=== PATIENT | female | born 1970 ===

== ENCOUNTER 2022-07-19 04:27 | Day surgery (SDC) | payer BC ==
[2022-07-12 16:22] VITALS: BMI 23.9
[2022-07-19] MEDS ORDERED: PHENAZOPYRIDINE HCL 100 MG TABLET (FP) ONE (06:38)
[2022-07-19] MEDS ORDERED: GABAPENTIN 300 MG CAPSULE ONE (06:38)
[2022-07-19] MEDS ORDERED: ceFAZolin SODIUM 1 GM VIAL ONE (06:38)
[2022-07-19] MEDS ORDERED: PHENAZOPYRIDINE HCL 100 MG TABLET (FP) PO ONE ×2 (06:50→07:30)
[2022-07-19] MEDS ORDERED: GABAPENTIN 300 MG CAPSULE PO ONE ×2 (06:50→07:30)
[2022-07-19] MEDS ORDERED: DEXAMETHASONE SOD PHOSPHATE 4 MG/1 ML VIAL ONE (07:22)
[2022-07-19] MEDS ORDERED: LIDOCAINE HCL/PF 2% SDV 5ML VIAL ONE (07:22)
[2022-07-19] MEDS ORDERED: BUPIVACAINE LIPOSOME/PF (EXPAREL) 266 MG/20 ML VIAL ONE (07:23)
[2022-07-19] MEDS ORDERED: PROPOFOL 20 ML ONE (07:23)
[2022-07-19] MEDS ORDERED: MIDAZOLAM HCL 2 MG/2 ML SINGLE DOSE VIAL ONE ×2 (07:23→07:24)
[2022-07-19] MEDS ORDERED: ROCURONIUM BROMIDE 50 MG/5 ML SYRINGE ONE (07:23)
[2022-07-19] MEDS ORDERED: SUCCINYLCHOLINE CHLORIDE 200 MG/10 ML SYRINGE ONE (07:23)
[2022-07-19] MEDS ORDERED: BUPIVACAINE HCL/PF 0.5% (5MG/ML) 10 ML VIAL ONE (07:24)
[2022-07-19] MEDS ORDERED: CEFAZOLIN SODIUM 2 GM in DEXTROSE 5%-WATER 100 ML IVPB ONE (08:00)
[2022-07-19] MEDS ORDERED: ceFAZolin SODIUM 1 GM VIAL IVPB ONE (08:00)
[2022-07-19] MEDS ORDERED: oxyCODONE HCL 5 MG TABLET PO PRN ×2 (09:08)
[2022-07-19] MEDS ORDERED: ONDANSETRON 4 MG/2 ML VIAL IVPUSH PRN ×2 (09:08→11:04)
[2022-07-19] MEDS ORDERED: KETOROLAC TROMETHAMINE 30 MG/1 ML VIAL IVPUSH SCH (09:15)
[2022-07-19] MEDS ORDERED: LACTATED RINGERS SOLUTION 1,000 ML IV SCH (09:15)
[2022-07-19] MEDS ORDERED: KETOROLAC TROMETHAMINE 30 MG/1 ML VIAL ONE (09:59)
[2022-07-19] MEDS ORDERED: ACETAMINOPHEN INJECTION 100 ML IVPB ONE (09:59)
[2022-07-19] MEDS ORDERED: NEOSTIGMINE METHYLSULFATE 0.5 MG/ML - 10 ML MDV ONE (10:02)
[2022-07-19] MEDS ORDERED: GLYCOPYRROLATE 0.2 MG/1 ML VIAL ONE (10:02)
[2022-07-19] MEDS ORDERED: DOCUSATE SODIUM 100 MG CAPSULE (FP) PO PRN (11:04)
[2022-07-19] MEDS ORDERED: BISACODYL 5 MG TABLET.DR (FP) PO PRN (11:04)
[2022-07-19] MEDS ORDERED: ACETAMINOPHEN 325 MG TABLET (FP) PO PRN (11:04)
[2022-07-19] MEDS ORDERED: LORATADINE 10 MG TABLET PO PRN (11:15)
[2022-07-19] MEDS ORDERED: [UNRECOGNIZED DRUG - REMARK] PO SCH (11:15)
[2022-07-19] MEDS: ACETAMINOPHEN 1000 MG/100 ML BAG IVPB SCH ×2 (15:15→21:29)
[2022-07-19] MEDS: CEFAZOLIN 1 GM in DEXTROSE 5%-WATER - 50 ML IVPB SCH (17:36)
[2022-07-19] MEDS: oxyCODONE HCL 10 MG SUSTAINED ACTING TABLET PO SCH (21:48)
[2022-07-19 21:49] LABS: HEMATOCRIT 32.8 % (32.4-45.2); HEMOGLOBIN 10.8 GM/dL (10.7-15.3); MCH 27.4 pg (25.7-33.7); MEAN CELL VOLUME 83.2 fl (80-96); MEAN PLT VOLUME 9.6 fl (7.5-11.1); PLATELET COUNT 157 10^3/uL (134-434); RBC 3.95 M/mm3 (3.60-5.2); RDW 15.3 % (11.6-15.6)
[2022-07-19 22:11] LABS: BLOOD UREA NITROGEN 8.2 mg/dL (7-18); CALCIUM 8.3 mg/dL (8.5-10.1)
[2022-07-20] MEDS: SIMETHICONE 80 MG TAB.CHEW (FP) PO PRN ×2 (00:38→04:33)
[2022-07-20] MEDS: CEFAZOLIN 1 GM in DEXTROSE 5%-WATER - 50 ML IVPB SCH ×2 (02:00→10:15)
[2022-07-20] MEDS: ACETAMINOPHEN 1000 MG/100 ML BAG IVPB SCH ×2 (04:00→04:20)
[2022-07-20 04:38] VITALS: BP 108/68
[2022-07-20 08:06] LABS: HEMATOCRIT 31.4 % (32.4-45.2); HEMOGLOBIN 10.2 GM/dL (10.7-15.3); MCH 26.5 pg (25.7-33.7); MCHC 32.4 g/dl (32.0-36.0); MEAN CELL VOLUME 81.9 fl (80-96); MEAN PLT VOLUME 9.4 fl (7.5-11.1); PLATELET COUNT 159 10^3/uL (134-434); RBC 3.84 M/mm3 (3.60-5.2); RDW 14.8 % (11.6-15.6); WHITE BLOOD COUNT 6.4 K/mm3 (4.0-10.0)
[2022-07-20 08:30] LABS: CALCIUM 8.3 mg/dL (8.5-10.1)
[2022-07-20 08:34] LABS: CREATININE 0.9 mg/dL (0.55-1.3)
[2022-07-20] MEDS ORDERED: ENOXAPARIN NA (PORCINE) 40 MG/0.4 ML DISP.SYRIN SQ SCH (10:00)
[2022-07-20] MEDS ORDERED: MULTIVITAMINS (DAILY MVI) TABLET (FP) PO SCH (10:00)
[2022-07-20] MEDS: oxyCODONE HCL 10 MG SUSTAINED ACTING TABLET PO SCH (11:12)
[2022-07-20 14:29] VITALS: PULSE 70; RESP 16; TEMP 97.7
== END 2022-07-20 19:00 | disposition home or self-care (01) ==
LOC: JASUSAT 04:27 → J3W 15:13 → JASUSAT 07-20 19:00
PROVIDERS: ATTEND Obstetrics & Gynecology
PROC: 8E0W8CZ Robotic Assisted Procedure of Trunk Region, Via Natural or Artificial Opening Endoscopic (ICD-10-PCS; 2022-07-19)
PROC: 0UB24ZZ Excision of Bilateral Ovaries, Percutaneous Endoscopic Approach (ICD-10-PCS; 2022-07-19)
PROC: 0UT9FZZ Resection of Uterus, Via Natural or Artificial Opening With Percutaneous Endoscopic Assistance (ICD-10-PCS; principal; 2022-07-19 07:30)
PROC: 0UT7FZZ Resection of Bilateral Fallopian Tubes, Via Natural or Artificial Opening With Percutaneous Endoscopic Assistance (ICD-10-PCS; 2022-07-19 07:30)
DX: N92.0 Excessive and frequent menstruation with regular cycle (principal); D25.9 Leiomyoma of uterus, unspecified; N83.12 Corpus luteum cyst of left ovary; N84.1 Polyp of cervix uteri; N83.01 Follicular cyst of right ovary
CPT/HCPCS: 58554; 58662; S2900; 36415; 80048; 81025; 85027; 86850; 86900; 86901; 88305-TC; 88307-TC; 94010; 94760; C9803-CS; U0003; U0005